=== PATIENT | female | born 1955 | race Caucasian/White ===

== ENCOUNTER 2017-03-03 11:22 | Emergency (ER) | payer MEDICARE ==
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
== END 2017-03-03 12:37 | disposition disaster alternative care site (69) ==
LOC: GMED 11:22
DX: S93.402A Sprain of unspecified ligament of left ankle, initial encounter (principal); I10 Essential (primary) hypertension; E11.9 Type 2 diabetes mellitus without complications; Z88.0 Allergy status to penicillin; Z79.84 Long term (current) use of oral hypoglycemic drugs; Z79.899 Other long term (current) drug therapy; V19.9XXA Pedal cyclist (driver) (passenger) injured in unspecified traffic accident, initial encounter

== ENCOUNTER → 2017-03-03 | Outpatient (CLI) | payer MEDICARE | END | disposition disaster alternative care site (69) | LOC: GAMB 11:05 | DX: S99.912A Unspecified injury of left ankle, initial encounter (principal); I10 Essential (primary) hypertension; E11.9 Type 2 diabetes mellitus without complications; M10.9 Gout, unspecified; M79.605 Pain in left leg; M79.672 Pain in left foot; W17.89XA Other fall from one level to another, initial encounter | CPT/HCPCS: A0425; A0429 ==